=== PATIENT | female | born 1960 | race Caucasian/White ===

== ENCOUNTER 2017-02-22 20:16 | Emergency (ER) | payer OTHER ==
[~2017-02-22] VITALS: Ht 157.5 cm; Wt 77.1 kg
[~2017-02-22 20:16] MED LIST: CETI10TA16 PO; PRED50TA PO; PROAIR HFA8.5 GM INH
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
[2017-02-22] MEDS ORDERED: predniSONE 20 MG TABLET PO ONE (21:45)
[2017-02-22] MEDS ORDERED: IPRATRPIUM/ALBUTEROL 0.5/2.5MG 3 ML NEBU. NEB ONE ×2 (21:45→23:00)
[2017-02-22] MEDS ORDERED: VENTOLIN HFA18 GM INH (23:39)
[2017-02-22] MEDS ORDERED: PRED50TA PO (23:39)
[2017-02-22 23:54] VITALS: BP 155/93
--- NOTE | 2017-02-23 07:40 | RAD ---
Chest, 2 views, 02/22/2017: History: Cough, shortness of breath The heart size and pulmonary vascularity are normal. No pulmonary infiltrate is seen. There is no evidence of pleural fluid. There is a mild thoracic scoliosis with mild scattered marginal spurring. IMPRESSION: No acute cardiopulmonary abnormality is detected.
== END 2017-02-23 | disposition home or self-care (01) ==
LOC: ER 20:16
DX: J45.901 Unspecified asthma with (acute) exacerbation (principal); M19.90 Unspecified osteoarthritis, unspecified site; Z88.6 Allergy status to analgesic agent
CPT/HCPCS: 71020; 94250; 94640; 99284; J7512; J7620

== ENCOUNTER → 2018-04-19 | Outpatient (CLI) | payer OTHER | END | disposition home or self-care (01) | LOC: US 12:18 | DX: Z12.31 Encounter for screening mammogram for malignant neoplasm of breast (principal); N88.8 Other specified noninflammatory disorders of cervix uteri; J45.909 Unspecified asthma, uncomplicated | CPT/HCPCS: 76830; 76856; 77067 ==

== ENCOUNTER → 2018-04-29 | Outpatient (CLI) | payer OTHER | END | disposition home or self-care (01) | LOC: MAMMO 10:14 | DX: R92.8 Other abnormal and inconclusive findings on diagnostic imaging of breast (principal); J45.909 Unspecified asthma, uncomplicated | CPT/HCPCS: 76641; 77065 ==

== ENCOUNTER → 2018-07-21 | Day surgery (SDC) | payer OTHER ==
[~2018-07-21] MED LIST changes: +IV RINGERS,LACTATED 1000ML 1,000 ML IV SCH; +MONT10TA6 PO; +PROPOFOL 40 ML IV ONE; +RANI150C PO; +VENTOLIN HFA18 GM INH
[2018-07-21 13:59] VITALS: BP 104/64
== END | disposition home or self-care (01) ==
LOC: ENDOS 11:38
PROVIDERS: ATTEND Internal Medicine Gastroenterology
DX: Z12.11 Encounter for screening for malignant neoplasm of colon (principal); K57.30 Diverticulosis of large intestine without perforation or abscess without bleeding; K64.0 First degree hemorrhoids; F41.9 Anxiety disorder, unspecified; F32.9 Major depressive disorder, single episode, unspecified; J45.909 Unspecified asthma, uncomplicated; M19.90 Unspecified osteoarthritis, unspecified site; Z88.6 Allergy status to analgesic agent; K21.9 Gastro-esophageal reflux disease without esophagitis; I10 Essential (primary) hypertension; Z83.3 Family history of diabetes mellitus; Z82.49 Family history of ischemic heart disease and other diseases of the circulatory system; Z72.89 Other problems related to lifestyle; Z79.899 Other long term (current) drug therapy; Z98.890 Other specified postprocedural states; Z98.51 Tubal ligation status; Z88.8 Allergy status to other drugs, medicaments and biological substances
CPT/HCPCS: 45378; J2704

== ENCOUNTER 2019-07-19 09:07 | Emergency (ER) | payer MEDICAID ==
[~2019-07-19] VITALS: Ht 157.5 cm; Wt 77.1 kg
[~2019-07-19 09:07] MED LIST changes: +ALBU2.5V8 INH; +FLUT12AE IH; -IV RINGERS,LACTATED 1000ML 1,000 ML IV SCH; +MONT10TA49 PO; -MONT10TA6 PO; +OXYC1TAB22 PO; -PROAIR HFA8.5 GM INH; -PROPOFOL 40 ML IV ONE
[2019-07-19] MEDS ORDERED: DEXAMETHASONE 4 MG TABLET PO STA (09:24)
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
[2019-07-19] MEDS ORDERED: FAMOTIDINE 20 MG TABLET. PO ONE (09:30)
[2019-07-19] MEDS ORDERED: diphenhydrAMINE HCL 25 MG CAPSULE PO ONE (09:30)
[2019-07-19 09:48] VITALS: BP 114/69
== END 2019-07-19 09:50 | disposition home or self-care (01) ==
LOC: ER 09:07
DX: L50.0 Allergic urticaria (principal); J45.909 Unspecified asthma, uncomplicated; K21.9 Gastro-esophageal reflux disease without esophagitis; Z91.018 Allergy to other foods; Z88.8 Allergy status to other drugs, medicaments and biological substances
CPT/HCPCS: 99284; J8540; Q0163

== ENCOUNTER → 2019-08-03 | Outpatient (CLI) | payer MEDICAID ==
--- NOTE | 2019-08-03 12:18 | RAD ---
DATE: 08/03/2019. EXAM: DIGITAL DIAGNOSTIC BILATERAL, BREAST LEFT. HISTORY: The patient was to return for six-month follow-up in October 2018 to reassess left nodules. Yearly surveillance. COMPARISON: 04/19/2018, 04/29/2018. This study was interpreted with the benefit of Computerized Aided Detection (CAD). FINDINGS: Breast Density: HETERO The breast parenchyma is heterogenously dense, which could reduce sensitivity of mammography. Breast parenchyma level C.. The nodules of prior concern are unchanged. Scattered and vascular calcifications are benign. The parenchymal pattern is stable. Scattered and vascular calcifications appear benign. On today's sonography, the previously noted hypoechoic nodule at the 1:00 position 6 cm from the nipple is unchanged and measures 6 x 5 mm. This may represent a fibroadenoma. At the 9:00 position 7 cm from the nipple, a hypoechoic region is measured at 9 x 4 mm. This generates shadowing. On real-time scanning, this may be artifactual from shadowing deep to adjacent interstitial structures, but remains indeterminate. BI-RADS CATEGORY: 4 SUSPICIOUS ABNORMALITY-BIOPSY SHOULD BE CONSIDERED. RECOMMENDED FOLLOW-UP: BIO BIOPSY RECOMMENDED. 1. Recommend ultrasound-guided biopsy of a 9 mm shadowing nodule at the left 9:00 position 7 cm from the nipple. These size were discussed with the patient who plans to arrange an appointment next week following an unrelated surgery. PQRS compliance statement: Patient information was entered into a reminder system with a target due date (now) for the next mammogram. Mammography is a sensitive method for finding small breast cancers, but it does not detect them all and is not a substitute for careful clinical examination. A negative mammogram does not negate a clinically suspicious finding and should not result in delay in biopsying a clinically suspicious abnormality. "Our facility is accredited by the [employer] Mammography Program."
[2019-08-04 10:21] VITALS: BP 134/80
== END | disposition home or self-care (01) ==
LOC: US 09:30
PROVIDERS: ATTEND Family Medicine
DX: N63.20 Unspecified lump in the left breast, unspecified quadrant (principal); R92.1 Mammographic calcification found on diagnostic imaging of breast
CPT/HCPCS: 76641; 77066

== ENCOUNTER → 2019-08-04 | Day surgery (SDC) | payer MEDICAID ==
[~2019-08-04] MED LIST changes: +IV RINGERS,LACTATED 1000ML 1,000 ML IV SCH; +LIDOCAINE 2% PF 5 ML VIAL. ONE; +PROPOFOL 20 ML IV ONE
--- NOTE | 2019-08-04 10:16 | CONS ---
DATE OF CONSULTATION: REFERRING PHYSICIAN: Dr. Sherry Villa M.D. REASON FOR CONSULTATION: Retained biliary stent with bile leak. HISTORY OF PRESENT ILLNESS: A 58-year-old female with past medical history significant for GERD, depression, deafness is seen for removal of retained biliary stent. She had a bile leak requiring stent placement approximately a month ago, was doing better, tolerating p.o. with no abdominal pain without additional complaints. PAST MEDICAL HISTORY: Anxiety, arthritis, depression, GERD. ALLERGIES: IBUPROFEN. MEDICATIONS: Include albuterol, cetirizine, Flovent, montelukast, and ranitidine. FAMILY AND SOCIAL HISTORY: Significant for diabetes with both parents, MIs with her father and grandfather. SOCIAL HISTORY: She is a social drinker, nonsmoker. PAST SURGICAL HISTORY: , tubal ligation, cholecystectomy. REVIEW OF SYSTEMS: Per records. PHYSICAL EXAMINATION: GENERAL: Reveals a well-nourished, well-developed female who is alert, cooperative, in no acute distress. VITAL SIGNS: Temperature 97.8, pulse 60, respirations 20. HEENT: Normocephalic, atraumatic head. Pupils and extraocular muscles are not tested. Sclerae anicteric. NECK: Supple. LUNGS: Clear. CARDIOVASCULAR: Reveals an S1, S2 without S3, S4 or appreciable murmur. ABDOMEN: Reveals a soft abdomen, normal bowel sounds, without appreciable hepatosplenomegaly. EXTREMITIES: Reveals no cyanosis, clubbing, edema. IMPRESSION: Bile leak, status post stent placement and EGD with stent removal today is recommended. Risks and benefits have been discussed with the patient including risk of perforation and she is willing to proceed. EMMA LANDIN MD DR: BRITTANY/michael JOB#: [id number] / [id number]
[2019-08-04 10:21] VITALS: BP 134/80
== END ==
LOC: ENDOS 07:52
PROVIDERS: ATTEND Internal Medicine Gastroenterology
DX: T18.3XXA Foreign body in small intestine, initial encounter (principal); K29.50 Unspecified chronic gastritis without bleeding; K21.9 Gastro-esophageal reflux disease without esophagitis; F32.9 Major depressive disorder, single episode, unspecified; F41.9 Anxiety disorder, unspecified; J45.909 Unspecified asthma, uncomplicated; Z87.39 Personal history of other diseases of the musculoskeletal system and connective tissue; Z88.8 Allergy status to other drugs, medicaments and biological substances; Z72.89 Other problems related to lifestyle; Z90.49 Acquired absence of other specified parts of digestive tract; Z98.51 Tubal ligation status; Z87.891 Personal history of nicotine dependence; X58.XXXA Exposure to other specified factors, initial encounter; Y93.89 Activity, other specified; Y92.89 Other specified places as the place of occurrence of the external cause; Y99.8 Other external cause status
CPT/HCPCS: 43247; J2001; J2704

== ENCOUNTER → 2019-09-05 | Outpatient (CLI) | payer MEDICAID ==
[2019-08-04 10:21] VITALS: BP 134/80
[~2019-09-05] MED LIST changes: -IV RINGERS,LACTATED 1000ML 1,000 ML IV SCH; -LIDOCAINE 2% PF 5 ML VIAL. ONE; -PROPOFOL 20 ML IV ONE
--- NOTE | 2019-09-05 13:06 | RAD ---
Procedure: Ultrasound-guided left breast mass biopsy Clinical Indication: 58-year-old female with new 9 mm shadowing lobulated hypoechoic breast mass at the 9:00 position of the left breast, 7 cm from the nipple, discovered incidentally during follow-up for second stable 6 mm probable benign fibroadenoma. Sedation: Local anesthesia only Antibiotics: None Sterility: The procedure was performed in its entirety using appropriate elements of sterile technique. Consent: The procedure was explained in its entirety to the patient or the patients designated healthcare representative by a member of the treatment team, including a discussion of the risks, benefits and commonly accepted alternatives to the procedure, as well as the expected consequences of no therapy whatsoever. Discussion of the risks included, but was not limited to, those that are most frequent and those that are rare but possibly severe or life-threatening, as well as the possibility of unforeseen complications. Technique and Findings: Following informed consent, the patient was prepped and draped in usual sterile fashion. Ultrasound of the area of interest was performed, nicely delineated and the targeted abnormality in the expected location. The skin was anesthetized using 1% lidocaine, and a small dermatotomy was made. A 13-gauge needle guide was then advanced simultaneously towards the target lesion, and a 14-gauge core biopsy device was then advanced coaxially through the needle guide and used to obtain 6 separate 14-gauge core biopsy specimens. These were all preserved in formalin. An UltraCor clip was then deployed centrally within the abnormality, and the needle guide was removed and hemostasis was achieved with manual compression. The patient was then sent for mammography. Complications: No immediate Impression: 1. Ultrasound guided left breast biopsy of a 9 mm lesion at the 9:00 position of the left breast, 7 cm from the nipple, as described. A clip was placed within the targeted lesion.
--- NOTE | 2019-09-06 15:07 | PATHOLOGY ---
[facility] Accession Number: [id number] . 01 Material submitted: . breast - LEFT BREAST MASS, 9:00 7 CMFN. Modifiers: left, 9:00 . 01 Clinical history: . Left breast mass, 9:00 7 cm from nipple . 02 Diagnosis: Breast tissue, left breast mass 9:00 needle biopsies: - Ancient fibroadenoma. LBQ 09/06/2019 1246 Local . 02 Comment: There is no evidence of malignancy. (JPM/db; 09/06/2019) . 02 Electronically signed: . Earl Allan MD, Pathologist NPI- [id number] . 01 Gross description: . The specimen is received in formalin, labeled "Whitney Hartley, left breast, 9:00 7 cm from nipple", are few fibrofatty cores and its fragments measuring 1.0 x 0.4 x 0.1 cm in aggregate. The specimen is entirely submitted in A1-A3. Specimen excised at: 0945 on 09/05/19, placed in formalin at: 0950 on 09/05/19, formalin exposure: Approximately 13 hours and 50 minutes. ([facility]; 09/05/2019) [facility] 09/05/2019 1810 Local . 02 Pathologist provided ICD-10: D24.2 . 02 CPT . 698320 Specimen Comment: A courtesy copy of this report has been sent to [phone], [phone] Specimen Comment: [id number], Specimen Comment: Report sent to ,DR WHITE / DR OBANDO Performed at: [address], [place], [place] [id number] MD Salas Najera MD Phone: [phone] Performed at: [address] [id number] MD Earl Allan MD Phone: [phone]
--- NOTE | 2019-09-06 18:31 | RAD ---
Study: 2-D diagnostic mammogram-left breast INDICATION: Status post ultrasound-guided left breast biopsy with clip placement. COMPARISON: Most recently on 08/03/2019 TECHNIQUE: 2-D digital diagnostic mammography of the left breast was performed after ultrasound-guided biopsy. The study is performed to evaluate clip placement. FINDINGS: Breast Tissue Density C : The breast tissue is heterogeneously dense. Scattered fibroglandular elements may obscure underlying pathology. Changes within the breast tissue in keeping with recent biopsy. The biopsy clip is located just posterior to the biopsied mass by approximately 3.5 mm as measured on the MLO view. The appearance of the rest of the breast is unchanged from the most recent comparison. IMPRESSION: Status post ultrasound-guided biopsy of a left breast mass located at the lower/inner quadrant. The biopsy clip is located just posterior to the mass by approximately 3.5 mm as measured on the MLO view. BI-RADS Category 4: Suspicious.
== END ==
LOC: US 07:58
PROVIDERS: ATTEND Surgery
DX: N63.20 Unspecified lump in the left breast, unspecified quadrant (principal); D24.2 Benign neoplasm of left breast
CPT/HCPCS: 19083; 77065; 88305; C1713; 19081; 76942

== ENCOUNTER → 2020-03-20 | Outpatient (CLI) | payer MEDICAID ==
[2019-08-04 10:21] VITALS: BP 134/80
--- NOTE | 2020-03-20 12:59 | RAD ---
EXAMINATION: MAMMO FITO DIAG LT History: Reason: 6 MONTH FU / Spl. Instructions: / History: COMPARISON/CORRELATION: 08/03/2019, 04/19/2018 mammograms and 08/03/2019 left breast ultrasound exam Technique: Diagnostic left unilateral digital mammogram views were obtained. CAD was utilized. 3-D tomosynthesis images were acquired. Findings: Breast Tissue Density B : There are scattered areas of fibroglandular density. There are no dominant masses, suspicious microcalcifications, or architectural distortion. Ultrasound imaging of the left breast demonstrates the biopsied hypoechoic lesion to be smaller upon comparison with the previous exam. It is 7 cm from the nipple at the 9:00 region measuring 0.4 cm in cm x 0.32 cm x 0.27 cm. IMPRESSION: No mammographic evidence of malignancy. Recommend routine screening. BI-RADS category 1: Negative. The images were reviewed with computer aided detection. Patient information is entered into the reminder system with a target due date for the next screening mammogram. Mammography is the most sensitive method for finding small breast cancers, but it does not detect them all and is not a substitute for careful clinical examination. A negative mammogram does not negate a clinically suspicious finding and should not result in delay in biopsying a clinically suspicious abnormality. "Our facility is accredited by the [employer] Mammography Program Electronically signed by: Maninder Lundy MD (03/20/2020 12:56 PM) [email or web address]
--- NOTE | 2020-03-20 13:00 | RAD ---
Examination: BREAST LEFT History: Reason: 6 MONTH FU / Spl. Instructions: / History: COMPARISON/CORRELATION: 08/03/2019, 04/19/2018 mammograms and 08/03/2019 left breast ultrasound exam Technique: Diagnostic left unilateral digital mammogram views were obtained. CAD was utilized. 3-D tomosynthesis images were acquired. Findings: Breast Tissue Density B : There are scattered areas of fibroglandular density. There are no dominant masses, suspicious microcalcifications, or architectural distortion. Ultrasound imaging of the left breast demonstrates the biopsied hypoechoic lesion to be smaller upon comparison with the previous exam. It is 7 cm from the nipple at the 9:00 region measuring 0.47 cm x 0.32 cm x 0.27 cm. IMPRESSION: No mammographic evidence of malignancy. Recommend routine screening. BI-RADS category 1: Negative. The images were reviewed with computer aided detection. Patient information is entered into the reminder system with a target due date for the next screening mammogram. Mammography is the most sensitive method for finding small breast cancers, but it does not detect them all and is not a substitute for careful clinical examination. A negative mammogram does not negate a clinically suspicious finding and should not result in delay in biopsying a clinically suspicious abnormality. "Our facility is accredited by the [employer] Mammography Program Electronically signed by: Maninder Lundy MD (03/20/2020 12:57 PM) [id number]
== END | disposition home or self-care (01) ==
LOC: MAMMO 10:27
PROVIDERS: ATTEND Surgery
DX: D24.2 Benign neoplasm of left breast (principal)
CPT/HCPCS: 76641; 77065; G0279; 77061

== ENCOUNTER → 2021-02-25 | Outpatient (CLI) | payer MEDICAID ==
[2019-08-04 10:21] VITALS: BP 134/80
[~2021-02-25] MED LIST changes: +IOHEXOL 240 MG/ML 50ML VIAL. PO ONE; +IOHEXOL 300 MG/ML 100ML VIAL. IV ONE
--- NOTE | 2021-02-25 11:09 | RAD ---
EXAM: Abdomen and pelvis CT with intravenous contrast. HISTORY: Left lower quadrant pain. TECHNIQUE: Computed tomographic images of the abdomen and pelvis were obtained following the administ ration of intravenous contrast. Multiplanar reformatting was performed. *One or more of the following individualized dose reduction techniques were utilized for this examina tion: 1. Automated exposure control. 2. Adjustment of the mA and/or kV according to patient size. 3. Use of iterative reconstruction technique. COMPARISON: 06/08/2019. FINDINGS: Evaluation of the lower thorax is demonstrates mild emphysema and lingular pleural parenchy mal scarring. The heart is normal in size. No suspicious hepatic lesion is seen. The gallbladder is a bsent. The pancreas is unremarkable. There is a stable 1.2 cm hypodense lesion within the inferior la teral spleen. The long-term stability favors a benign cyst or hemangioma. There is a stable small nakul cification involving the left adrenal gland, likely due to prior adrenal gland hemorrhage. There is s table small cyst within the lateral mid zone of the left kidney. There is no appendicitis. There is colonic diverticulosis. There is segmental wall thickening with sl ight surrounding inflammatory stranding involving the proximal sigmoid colon, likely due to acute div erticulitis. No drainable fluid collection or free air is seen. The uterus, adnexal regions, urinary bladder and aorta are unremarkable. There is no lymphadenopathy. There is no suspicious osseous lesio n. IMPRESSION: 1. Suspected acute diverticulitis involving the proximal sigmoid colon. This is superimposed on colon ic diverticulosis. 2. Stable suspected small benign cyst or hemangioma within the spleen and small simple left renal cys t. Follow-up is not routinely performed for simple cysts. Electronically signed by: Nancy Talavera MD (02/25/2021 11:06 AM) [id number]
== END ==
LOC: CT 09:27
PROVIDERS: ATTEND Family Medicine
DX: K57.30 Diverticulosis of large intestine without perforation or abscess without bleeding (principal)
CPT/HCPCS: 74177; Q9967

== ENCOUNTER → 2021-03-24 | Outpatient (CLI) | payer MEDICAID ==
[2019-08-04 10:21] VITALS: BP 134/80
[~2021-03-24] MED LIST changes: -IOHEXOL 240 MG/ML 50ML VIAL. PO ONE; -IOHEXOL 300 MG/ML 100ML VIAL. IV ONE
--- NOTE | 2021-03-24 13:13 | RAD ---
PROCEDURE: MG 2D BILAT SCREENING HISTORY: The patient is 60 years old and is seen for Reason: SCREENING MAMMOGRAM / Spl. Instructions: / History: . COMPARISON: August 03, 2019 TECHNIQUE: CC and MLO views of both breasts were obtained. Images were processed by the [employer] computer-aided detection system. DENSITY: The breast parenchyma is heterogeneously dense. This may lower the sensitivity of mammograph y. FINDINGS: Left breast: Unchanged several well-circumscribed left breast masses. Benign-appearing calcifications . No new suspicious mitral calcification, mass or architectural distortion. Left breast biopsy marke r. Right breast: Benign-appearing calcific indications. No new suspicious mitral opacification, mass or architectural distortion. IMPRESSION: Stable bilateral mammograms. Recommend annual screening mammograms per [employer] guidelines. She will be due in one year. BI-RADS category 2 Benign Patient entered into a reminder system for annual screening mammogram. Electronically signed by: Marlon Davies DO (03/24/2021 1:10 PM) [id number]
== END ==
LOC: MAMMO 10:44
PROVIDERS: ATTEND Family Medicine
DX: Z12.31 Encounter for screening mammogram for malignant neoplasm of breast (principal)
CPT/HCPCS: 77067

== ENCOUNTER → 2021-04-08 | Outpatient (CLI) | payer MEDICAID ==
[2019-08-04 10:21] VITALS: BP 134/80
[~2021-04-08] MED LIST changes: +CONTRAST GIVEN. MC PRN; +IOHEXOL 240 MG/ML 50ML VIAL. PO ONE; +IOHEXOL 300 MG/ML 100ML VIAL. IV ONE
--- NOTE | 2021-04-08 11:26 | RAD ---
EXAMINATION: CT abdomen and pelvis with IV contrast. INDICATION:60 years, Female, left lower quadrant abdominal pain. TECHNIQUE: Axial CT images of the abdomen and pelvis were obtained. Coronal and sagittal reformatted performed. COMPARISON: 02/25/2021. Exposure: One or more of the following individualized dose reduction techniques were utilized for thi s examination: 1. Automated exposure control 2. Adjustment of the mA and/or kV according to patient size 3. Use of iterative reconstruction technique. FINDINGS: LOWER CHEST: Similar mild centrilobular and paraseptal emphysema in the lung bases. Subsegmental atelectasis in bi basilar lungs. ABDOMEN/PELVIS: No suspicious focal hepatic lesion. Cholecystectomy. No biliary ductal dilation. Unremarkable pancrea s and spleen. No adrenal nodule. No hydronephrosis or nephrolithiasis in either kidney. Unchanged sub centimeter hypodensity in the interpolar left kidney, too small to characterize and favors benign ramya ology such as cyst. Small hiatal hernia. No bowel obstruction or wall thickening. Extensive colonic d iverticulosis without diverticulitis. Normal appendix. Normal caliber abdominal aorta. Mesenteric art eries and portal vein are patent. No lymphadenopathy in the abdomen or pelvis by size criteria. Under distended urinary bladder which limits evaluation. Unremarkable uterus. No suspicious pelvic masses. Surgical clips in the left hemipelvis. MUSCULOSKELETAL: No acute osseous process. Small fat-containing umbilical hernia. IMPRESSION: 1. No acute abnormality in the abdomen or pelvis. 2. Extensive colonic diverticulosis without acute diverticulitis. 3. Other chronic/incidental findings, as described above. Electronically signed by: Elda Ramirez MD (04/08/2021 11:23 AM) [id number]
== END ==
LOC: CT 09:13
PROVIDERS: ATTEND Internal Medicine Gastroenterology
DX: K44.9 Diaphragmatic hernia without obstruction or gangrene (principal); K57.30 Diverticulosis of large intestine without perforation or abscess without bleeding; J43.9 Emphysema, unspecified; J98.11 Atelectasis; N28.1 Cyst of kidney, acquired
CPT/HCPCS: 74177; Q9966; Q9967

== ENCOUNTER → 2021-12-05 | Outpatient (CLI) | payer MEDICAID ==
[2019-08-04 10:21] VITALS: BP 134/80
[~2021-12-05] MED LIST changes: -CONTRAST GIVEN. MC PRN; -IOHEXOL 240 MG/ML 50ML VIAL. PO ONE; -IOHEXOL 300 MG/ML 100ML VIAL. IV ONE
[2021-12-06 00:08] LABS: HEMOGLOBIN A1C 5.9 % (4.8-5.6)
== END ==
LOC: LAB 10:47
PROVIDERS: ATTEND Nurse Practitioner Family
DX: G43.109 Migraine with aura, not intractable, without status migrainosus (principal); G62.9 Polyneuropathy, unspecified
CPT/HCPCS: 36415; 82607; 82746; 83036; 84165; 84443; 85651; 86038; 86141

== ENCOUNTER 2021-12-06 08:42 | Emergency (ER) | payer MEDICAID ==
[~2021-12-06] VITALS: Ht 157.5 cm; Wt 77.2 kg
[2021-12-06 09:19] LABS: BASO # 0.1 x10^3/uL (0.0-0.2); BASO % 2 % (0-3); EOS # 0.3 x10^3/uL (0.0-0.7); EOS % 5 % (0-3); HEMATOCRIT 44.3 % (36.0-47.0); HEMOGLOBIN 14.1 g/dL (12.0-15.5); LYMPH # 1.8 x10^3/uL (1.0-4.8); LYMPH % 26 % (24-48); MEAN CORPUSCULAR HEMOGLOBIN 29 pg (25-35); MEAN CORPUSCULAR HGB CONC 32 g/dL (31-37); MEAN CORPUSCULAR VOLUME 90 fL (79-100); MONO # 0.6 x10^3/uL (0.0-1.1); MONO % 9 % (0-9); NEUT % 59 % (31-73); PLATELET COUNT 275 x10^3/uL (140-400); RED CELL DISTRIBUTION WIDTH 14.6 % (11.5-14.5); WHITE BLOOD COUNT 6.9 x10^3/uL (4.0-11.0)
--- NOTE | 2021-12-06 09:24 | RAD ---
AP chest. HISTORY: Chest pain AP view was taken of the chest. Lungs are free of acute infiltrates. Heart is normal in size. There i s no pleural effusion. IMPRESSION: 1. No acute infiltrates. Electronically signed by: Don Martinez MD (12/06/2021 9:21 AM) [id number]
[2021-12-06] MEDS ORDERED: LIDO:MAALOX 1:1 20 ML SINGLE DOSE. SWSW ONE (10:00)
[2021-12-06 10:10] LABS: BARBITURATES NEG (NEG); BENZODIAZEPINES NEG (NEG); CANNABINOIDS NEG (NEG); COCAINE NEG (NEG); METHADONE NEG (NEG); OPIATES NEG (NEG); PHENCYCLIDINE NEG (NEG)
[2021-12-06 10:14] LABS: AMPHETAMINE/METHAMPHETAMINE NEG (NEG)
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
[2021-12-06 11:00] LABS: CALCIUM 9.1 mg/dL (8.5-10.1); CREATININE 0.5 mg/dL (0.6-1.0); GFR 126.7; POTASSIUM 4.4 mmol/L (3.5-5.1)
[2021-12-06 11:06] LABS: ALBUMIN 3.8 g/dL (3.4-5.0); ALBUMIN/GLOBULIN RATIO 1.1 (1.0-1.7); TOTAL BILIRUBIN 0.3 mg/dL (0.2-1.0); TOTAL PROTEIN 7.4 g/dL (6.4-8.2)
[2021-12-06 11:37] LABS: AMORPHOUS SEDIMENT,UR PRESENT /HPF; BACTERIA,URINE FEW /HPF (0-FEW); BILIRUBIN,URINE NEGATIVE (NEG); CLARITY,URINE CLEAR; COLOR,URINE YELLOW; NITRITE,URINE NEGATIVE (NEG); PROTEIN,URINE NEGATIVE (NEG-TRACE); RBC,URINE RARE /HPF (0-2); WBC,URINE RARE /HPF (0-4)
[2021-12-06 14:22] VITALS: BP 124/89
--- NOTE | 2021-12-06 16:05 | EKG ---
[facility] [address] [place] [address] Test Date: 2021-12-06 Test Time: 09:34:07 Pat Name: DIVYA ANDREA Department: Room: Gender: F Ship/Rec/Doc Control: : 1960 Requested By: LAM GUERRERO Order Number: [id number] Reading MD: Huber Hill Measurements Intervals [place] Rate: 60 P: LA: QRS: 30 QRSD: 64 T: 68 QT: 390 QTc: 390 Interpretive Statements UNCERTAIN RHYTHM NON SPECIFIC ST-T WAVE CHANGES Electronically Signed On 12-07-2021 17:45:22 FINANCIAL COUNSELOR by Huber Hill
--- NOTE | 2021-12-06 16:06 | EKG ---
[facility] [address] [place] [address] Test Date: 2021-12-06 Test Time: 08:52:49 Pat Name: DIVYA ANDREA Department: Room: Gender: F Senior Financial Reporting Analyst: : 1960 Requested By: LAM GUERRERO Order Number: [id number] Reading MD: Huber Hill Measurements Intervals [place] Rate: 61 P: AL: QRS: 58 QRSD: 62 T: 246 QT: 392 QTc: 400 Interpretive Statements PROBABLE SINUS RHYTHM NON SPECIFIC ST-T WAVE CHANGES Electronically Signed On 12-07-2021 17:46:42 GYPSUM BLOCK SETTER by Huber Hill
== END 2021-12-06 14:27 | disposition home or self-care (01) ==
LOC: ER 08:42
DX: R07.2 Precordial pain (principal); G43.909 Migraine, unspecified, not intractable, without status migrainosus; J45.909 Unspecified asthma, uncomplicated; K21.9 Gastro-esophageal reflux disease without esophagitis; Z87.891 Personal history of nicotine dependence; Z91.018 Allergy to other foods; Z88.8 Allergy status to other drugs, medicaments and biological substances
CPT/HCPCS: 36415; 71045; 80053; 80307; 81001; 83735; 83880; 84484; 85025; 87086; 93005; 99285-25

== ENCOUNTER → 2022-02-19 | Outpatient (CLI) | payer MEDICAID ==
--- NOTE | 2022-02-19 11:16 | KCIC ---
EXAM: Brain MRI without contrast. HISTORY: Migraines. Chronic brain injury. TECHNIQUE: Multiplanar, multisequence magnetic resonance imaging of the brain was performed without c ontrast. COMPARISON: None. FINDINGS: There is no restricted diffusion to suggest acute or subacute infarction. There is no susce ptibility effect to suggest hemorrhage. There is no mass effect or midline shift. There is no hydroce phalus. There are multiple scattered focal areas of signal change throughout the cerebral white matter, a non specific finding. The orbits are unremarkable. The paranasal sinuses are unremarkable. There is a tiny amount of right mastoid fluid. There are normal flow voids within the cerebral vessels. There is no suspicious calvar ial lesion. IMPRESSION: 1. Multiple scattered focal areas of signal change throughout the cerebral white matter, a nonspecifi c finding which is most commonly due to chronic small vessel disease. This is advanced for patient ag e. The differential also includes changes due to chronic demyelinating disease. 2. No acute intracranial finding. Electronically signed by: Nancy Talavera MD (02/19/2022 11:14 AM) [id number]
== END ==
LOC: KCIC MRI 09:25
PROVIDERS: ATTEND Nurse Practitioner Family
DX: G37.9 Demyelinating disease of central nervous system, unspecified (principal); G43.109 Migraine with aura, not intractable, without status migrainosus; R42 Dizziness and giddiness; Z87.828 Personal history of other (healed) physical injury and trauma
CPT/HCPCS: 70551